=== PATIENT | male | born 1990 | race Caucasian/White ===

== ENCOUNTER 2017-06-13 12:44 | Emergency (ER) | payer OTHER, BC ==
[2017-06-13 12:44] VITALS: BMI 32.2
[2017-06-13 12:52] VITALS: RESP 20; TEMP 98.1
[2017-06-13] MEDS ORDERED: Naproxen 550 mg Tab PO STA (12:58)
[2017-06-13] MEDS ORDERED: Naproxen 550 mg Tab PO ONE (13:01)
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
[2017-06-13 14:09] VITALS: BP 130/78; PULSE 99; O2SAT 99
== END 2017-06-13 14:00 | disposition home or self-care (01) ==
LOC: C.ER 12:44
DX: S59.901A Unspecified injury of right elbow, initial encounter (principal); V89.2XXA Person injured in unspecified motor-vehicle accident, traffic, initial encounter

== ENCOUNTER 2017-11-07 03:53 | Emergency (ER) | payer BC, OTHER ==
[2017-11-07 03:53] VITALS: BMI 32.2
[2017-11-07 04:24] VITALS: PULSE 80; RESP 20
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
[2017-11-07 06:17] VITALS: BP 126/80; TEMP 98.5
[2017-11-07 20:18] VITALS: O2SAT 95
== END 2017-11-07 06:17 | disposition home or self-care (01) ==
LOC: C.ER 03:53
DX: S09.90XA Unspecified injury of head, initial encounter (principal); V89.2XXA Person injured in unspecified motor-vehicle accident, traffic, initial encounter

== ENCOUNTER 2017-11-08 21:49 | Emergency (ER) | payer OTHER ==
[2017-11-08 21:50] VITALS: BMI 32.2
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
--- NOTE | 2017-11-09 00:24 | C.PDOC ---
Time Seen by Provider: 11/08/17 22:22 Chief Complaint (Nursing): Lower Extremity Problem/Injury Past Medical History Vital Signs: Last Vital Signs Temp 97.9 F 11/08/17 22:18 Pulse 86 11/08/17 22:18 Resp 14 11/08/17 22:18 BP 148/88 11/08/17 22:18 Pulse Ox 98 11/08/17 22:18 - Medical History PMH: Anxiety, Hyperlipidemia, Seizures Denies: Bipolar Disorder, Depression, Diabetes, Hepatitis, HIV, HTN, Paranoia , Post Traumatic Stress Disorder, Chronic Kidney Disease, Schizophrenia, Sexually Transmitted Disease - [facility] Procedures INJECT/INFUSE ELECTROLYT (11/28/13) INJECT/INFUSE NEC (03/30/13) PSYCHIA INTERV/EVAL NEC (11/28/13) Family History: States: Unknown Family Hx - Social History Hx Tobacco Use: Yes Hx Alcohol Use: Yes Hx Substance Use: No - Immunization History Hx Tetanus Toxoid Vaccination: No Hx Influenza Vaccination: No Hx Pneumococcal Vaccination: No ED Course And Treatment O2 Sat by Pulse Oximetry: 98 Disposition - Disposition Forms: [employer] [facility] (Gabonese)
[2017-11-09 00:38] VITALS: BP 147/96; PULSE 72; RESP 16; TEMP 98.4
[2017-11-09 06:51] VITALS: O2SAT 98
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
== END 2017-11-09 00:38 | disposition home or self-care (01) ==
LOC: C.ER 21:49
DX: S80.11XA Contusion of right lower leg, initial encounter (principal); S39.012A Strain of muscle, fascia and tendon of lower back, initial encounter; V49.9XXA Car occupant (driver) (passenger) injured in unspecified traffic accident, initial encounter; Y92.410 Unspecified street and highway as the place of occurrence of the external cause
CPT/HCPCS: 72100; 73562; 73590; 96372; 99284; J1885